=== PATIENT | male | born 1950 | race Caucasian/White ===

== ENCOUNTER 2020-01-09 07:02 | Emergency (ER) | payer OTHER, BC ==
[~2020-01-09] VITALS: Ht 167.6 cm; Wt 68.0 kg
== END 2020-01-09 08:09 | disposition home or self-care (01) ==
LOC: ED 07:02
DX: S83.92XA Sprain of unspecified site of left knee, initial encounter (principal); X58.XXXA Exposure to other specified factors, initial encounter
CPT/HCPCS: 73560; 99283-25

== ENCOUNTER 2023-12-04 07:21 | Day surgery (SDC) | payer BC, MEDICARE ==
[~2023-12-04] VITALS: Ht 162.6 cm; Wt 73.5 kg
[~2023-12-04 07:21] MED LIST: ECHINACEA400 MG PO; IBLOOD GLUCOSE TEST STRIP 1 EA TEST VI PRN; LACTATED RINGER'S 1,000 ML IV SCH; LIDOCAINE HCL 1% 5 ML SDV INJ ONE; MIDAZOLAM HCL 5 MG/5 ML VIAL IV PRN; MULTI VITAMIN1 EACH PO; OMEPRAZOLE20 MG PO; TRIAMCINOLONE A15 G1 TOP; VITAMIN C500 M5 PO; ZINC50 MG PO; fentaNYL citrate 100 MCG/2 ML VIAL IV PRN
[2023-12-04 07:33] VITALS: BP 135/81
[2023-12-04] MEDS ORDERED: fentaNYL citrate 100 MCG/2 ML VIAL ONE (08:34)
[2023-12-04] MEDS ORDERED: MIDAZOLAM HCL 5 MG/5 ML VIAL ONE (08:34)
--- NOTE | 2023-12-04 10:01 | NUR ---
12/04/23 Michelle1 Apoorva Sullivan PATIENT WAKES TO MY VOICE AND LIGHT TOUCH. HE REPOSITIONS HIMSELF ONTO HIS BACK AND DOES WELL WITH THAT. HE DENIES DESIRE FOR ANYTHING TO DRINK.
[2023-12-04 10:11] VITALS: BP 115/79
--- NOTE | 2023-12-04 15:55 | OR ---
[facility] [address], [place] [address] Signed DATE OF OPERATION: 12/04/2023 SURGEON: Talia Tilley MD PREOPERATIVE DIAGNOSES: 1. Personal history of colonic polyps in 2003 at age 53. 2. Moderate pandiverticulosis. PROCEDURE: Colonoscopy without biopsy. ESTIMATED BLOOD LOSS: None. INDICATIONS: Feliz is a 73-year-old gentleman, asked to see me for a followup colonoscopy. This would be his 3rd colonoscopy. He describes a colonoscopy in 2003 at the age of 53 while living in [place], [place]. He remembers being told he had precancerous polyps and should follow up in 5 years. He went back to the [facility] in 2011 at the age of 61. He had a negative colonoscopy. He believes he was told to follow up in 10 years. He said he has no lower GI complaints. There is no family history of colon cancer or polyps. He came to the office with his significant other. In the office, I gave him a pamphlet on colonoscopy. We reviewed the nature of the test. There is risk including, but not limited to gas bloating, crampy abdominal pain, bleeding, perforation requiring surgery, and missed diagnosis. We also reviewed the written instructions for a bowel prep line by line. He understands an adult person has to take him home afterwards. He had expressed understanding and wished to proceed. DESCRIPTION OF PROCEDURE: Feliz was taken into our endoscopy suite and placed in the left lateral decubitus position. He was given 7 mg of Versed and 125 mcg of fentanyl to cover the case. A digital rectal exam was performed. He had good sphincter tone. There were no external hemorrhoids. There were no masses. His prostate is indurated and enlarged. The right is more so than the left. More so at the top of the prostate and the bottom. The adult colonoscope was introduced and advanced under direct visualization of the camera. He took just a little extra medication in order to get around into the cecum itself. His prep was quite excellent. We could easily see the appendiceal orifice and the ileocecal valve. The scope then slowly withdrawn. He had moderate sized diverticula throughout the colon. They were relatively few in number. Once in the rectum, the scope had been retroflexed and there was no additional pathology above the anal canal. After this, the Electronically Signed By: TALIA TILLEY MD 12/04/23 1555 PATIENT NAME: FELIZ PERALES OPERATIVE REPORT DATE OF : 52 REPORT #: [id number] PHYSICIAN: TALIA TILLEY MD PCP: TESSA ZEE MD REPORT IS CONFIDENTIAL AND NOT TO BE RELEASED WITHOUT AUTHORIZATION [facility] [address], [place] [address] Signed gas was suctioned out and the colonoscope removed. Feliz tolerated the procedure quite well. RECOMMENDATIONS: Feliz is welcome to return in 5 years for repeat colonoscopy if indeed he had precancerous polyps in 2003 at the age of 53. If he pushes it out to 10 years, he would be 83 years of age. He would have to discuss that with his primary care provider at that time. Talia Tilley MD ALB/MODL /[id number] cc: Dr. Tessa Tilley MD Copies: TALIA TILLEY MD ~ Electronically Signed By: TALIA TILLEY MD 12/04/23 1555 PATIENT NAME: FELIZ PERALES OPERATIVE REPORT DATE OF : 52 REPORT #: [id number] PHYSICIAN: TALIA TILLEY MD PCP: TESSA ZEE MD REPORT IS CONFIDENTIAL AND NOT TO BE RELEASED WITHOUT AUTHORIZATION
== END 2023-12-04 10:18 | disposition home or self-care (01) ==
LOC: DS 07:21
PROVIDERS: ATTEND Colon & Rectal Surgery
PROC: 0DJD8ZZ Inspection of Lower Intestinal Tract, Via Natural or Artificial Opening Endoscopic (ICD-10-PCS; principal; 2023-12-04 09:00)
DX: K57.30 Diverticulosis of large intestine without perforation or abscess without bleeding (principal); N40.0 Benign prostatic hyperplasia without lower urinary tract symptoms; Z86.010 Personal history of colon polyps; Z79.899 Other long term (current) drug therapy
CPT/HCPCS: 99153; G0500; J2250; J3010

== ENCOUNTER 2024-01-21 05:50 | Day surgery (SDC) | payer BC, MEDICARE ==
[2024-01-14 11:28] VITALS: BP 103/71
[~2024-01-21] VITALS: Ht 167.6 cm; Wt 72.7 kg
[~2024-01-21 05:50] MED LIST changes: -IBLOOD GLUCOSE TEST STRIP 1 EA TEST VI PRN; -LIDOCAINE HCL 1% 5 ML SDV INJ ONE; -MIDAZOLAM HCL 5 MG/5 ML VIAL IV PRN; -fentaNYL citrate 100 MCG/2 ML VIAL IV PRN
[2024-01-21 06:04] VITALS: BP 139/80
[2024-01-21] MEDS ORDERED: LIDOCAINE HCL 2% 5 ML SDV ONE (06:58)
[2024-01-21] MEDS ORDERED: propofoL 200 MG/20 ML VIAL ONE (06:58)
[2024-01-21] MEDS ORDERED: MIDAZOLAM HCL 2 MG/2 ML VIAL ONE (06:58)
[2024-01-21] MEDS ORDERED: CEFAZOLIN SODIUM 2 GM/20 ML SYR IV SCH (07:00)
[2024-01-21] MEDS ORDERED: IBLOOD GLUCOSE TEST STRIP 1 EA TEST VI PRN ×2 (07:00→07:15)
[2024-01-21] MEDS ORDERED: LIDOCAINE HCL 1% 5 ML SDV INJ ONE (07:00)
[2024-01-21] MEDS ORDERED: fentaNYL citrate 50 MCG/ML SDV IV PRN (07:15)
[2024-01-21] MEDS ORDERED: MIDAZOLAM HCL 2 MG/2 ML VIAL IV PRN (07:15)
[2024-01-21] MEDS ORDERED: NALOXONE HCL 0.4 MG SYR IV PRN (07:15)
[2024-01-21] MEDS ORDERED: ondansetron HCL 4 MG/2 ML VIAL IV PRN ×2 (07:15→07:45)
[2024-01-21] MEDS ORDERED: TRAMADOL HCL 50 MG TAB PO PRN (07:45)
[2024-01-21] MEDS ORDERED: PHENAZOPYRIDINE HCL 95 MG TAB PO PRN (07:45)
--- NOTE | 2024-01-21 08:18 | NUR ---
01/21/24 0818 Arabella Shane 0810 PT TO PACU SLEEPING. PT MAINTAINS SATS ABOVE 95% ON ROOM AIR.
[2024-01-21 08:38] VITALS: BP 117/85
== END 2024-01-21 08:48 | disposition home or self-care (01) ==
LOC: OPS 05:50 → DS 05:50 → OPS 07:30 → DS 07:30 → OPS 08:48 → DS 11:00
PROVIDERS: ATTEND Urology
PROC: 0TJB8ZZ Inspection of Bladder, Via Natural or Artificial Opening Endoscopic (ICD-10-PCS; principal; 2024-01-21 07:30)
DX: N40.1 Benign prostatic hyperplasia with lower urinary tract symptoms (principal); N32.89 Other specified disorders of bladder; M35.3 Polymyalgia rheumatica; M51.369 Other intervertebral disc degeneration, lumbar region without mention of lumbar back pain or lower extremity pain
CPT/HCPCS: 00910; J0690; J2250; J2704; J7121

== ENCOUNTER 2024-05-20 08:30 | Day surgery (SDC) | payer BC, MEDICARE ==
[~2024-05-20] VITALS: Ht 167.6 cm; Wt 77.1 kg
[~2024-05-20 08:30] MED LIST changes: +ADVIL200 MG; +CEFAZOLIN SODIUM 2 GM/20 ML SYR IV SCH; +ELLZIA PAK1 EACH TP; +FLOMAX0.4 MG PO; +IBLOOD GLUCOSE TEST STRIP 1 EA TEST VI PRN; +LIDOCAINE HCL 1% 5 ML SDV INJ ONE; +MIDAZOLAM HCL 5 MG/5 ML VIAL IV PRN; +OXYBUTYNIN CHLOR5 M1 PO; +TURMERIC500 M2 PO; +TYLENOL EXTRA500 MG PO; +fentaNYL citrate 100 MCG/2 ML VIAL IV PRN
[2024-05-20 08:46] VITALS: BP 140/86
[2024-05-20] MEDS ORDERED: MIDAZOLAM HCL 5 MG/5 ML VIAL ONE (09:51)
[2024-05-20] MEDS ORDERED: fentaNYL citrate 100 MCG/2 ML VIAL ONE (09:51)
[2024-05-20] MEDS ORDERED: MIDAZOLAM HCL 2 MG/2 ML VIAL ONE (10:04)
--- NOTE | 2024-05-20 10:25 | NUR ---
05/20/24 Jean Claude5 Sandra De Souza 1019- PT PRESENTS TO PACU, SEMI RODRIGUEZ POSITION, REACTIVE TO STIMULUS. BREATHING EVEN AND NON LABORED, O2 AT 3L PER NC, INTERMITTENT SNORING. LR INFUSING TO RFA IV. ABD SOFT, NON DISTENDED. ALL MONITORS IN PLACE.
[2024-05-20 11:03] VITALS: BP 107/83
--- NOTE | 2024-05-20 16:06 | OR ---
[facility] [address], [place] [address] Signed DATE OF OPERATION: 05/20/2024 SURGEON: Talia Grubbs MD PREOPERATIVE DIAGNOSES: 1. Gastroesophageal reflux disease. 2. Heartburn. POSTOPERATIVE DIAGNOSES: 1. Hiatal hernia (38-35 cm). 2. 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 3. Mild diffuse gastritis. PROCEDURE: EGD with CLOtest and biopsies of the antrum and GE junction. ESTIMATED BLOOD LOSS: None. INDICATIONS: Feliz is a 73-year-old gentleman, asked to see me for an upper endoscopy. He has been having worsening acid reflux symptoms despite omeprazole and Tums. He has learned not to eat within a couple hours of going to bed or lying supine. I helped him with a colonoscopy in December 2023. He did very well with 7 mg of Versed and 125 mcg of fentanyl. He understands this is a very similar process. This does not require any laxatives. He said he had his right shoulder replaced on 01/29/2024. He confirmed today that orthopedic surgeon felt it was fine to proceed. We always gave preoperative Ancef for joint replacements. He did receive that today. In the office, I gave him a pamphlet on upper endoscopy. We had reviewed the nature of the test. There is risk including, but not limited to gas bloating, crampy abdominal pain, bleeding, perforation requiring surgery, and missed diagnosis. We also reviewed the need for the IV sedation. He said his will take him home. He had expressed understanding and wished to proceed. DESCRIPTION OF PROCEDURE: Feliz was taken into the endoscopy suite and placed in the supine semi-recumbent position. The posterior oropharynx was anesthetized with lidocaine spray. A bite block was utilized for the case. He was given a total of 6 mg of Versed and 100 mcg of fentanyl. The adult gastroscope was introduced and advanced under direct visualization of the camera without difficulty. His duodenum and pyloric channel were unremarkable. Electronically Signed By: TALIA GRUBBS MD 05/20/24 1606 PATIENT NAME: FELIZ PERALES OPERATIVE REPORT DATE OF : 52 REPORT #: [id number] PHYSICIAN: TALIA GRUBBS MD PCP: TESSA ZEE MD REPORT IS CONFIDENTIAL AND NOT TO BE RELEASED WITHOUT AUTHORIZATION [facility] [address], [place] [address] Signed We could actually see the ampulla of Vater quite well. His stomach showed very mild diffuse erythematous changes. We went ahead and took a biopsy of the antrum for CLOtest as well as pathologic review. Upon retroflexion of the scope, we could easily see his small to moderate sized hiatal hernia. It measured out roughly 38 back to 35 cm. It may have been just a little longer. Of course, the GE junction is at 35 cm. He had some mild disruption to his Z-line. There was no Ni's mucosa. We saw no gastric or esophageal varices. There was no stricture. His distal, middle and upper esophagus were unremarkable. After this, the gas was suctioned out and the gastroscope removed. Feliz tolerated the procedure quite well. RECOMMENDATIONS: I will see Feliz back in my office in 1 to 2 weeks to review his results. Talia Grubbs MD ALB/MODL /[id number] cc: MD Dr. Tessa Humphrey Copies: TALIA GRUBBS MD ~ Electronically Signed By: TALIA GRUBBS MD 05/20/24 1606 PATIENT NAME: FELIZ PERALES OPERATIVE REPORT DATE OF : 52 REPORT #: [id number] PHYSICIAN: TALIA GRUBBS MD PCP: TESSA ZEE MD REPORT IS CONFIDENTIAL AND NOT TO BE RELEASED WITHOUT AUTHORIZATION
--- NOTE | 2024-05-22 09:45 | PATH ---
[facility] [address] [facility] [place], [place] [address] Signed SPECIMEN(S): A ANTRUM/PYLORUS BIOPSY SPECIMEN(S): B GE JUNCTION BIOPSY SPECIMEN SOURCE: A. ANTRUM/PYLORUS BIOPSY B. GE JUNCTION BIOPSY CLINICAL HISTORY: GERD, acid reflux FINAL PATHOLOGIC DIAGNOSIS: A. Stomach, antrum/pylorus, biopsy: - Gastric antral mucosa with no significant pathologic changes - Negative for Helicobacter pylori with HE stains B. Gastroesophageal junction, biopsy: - Squamoglandular mucosa with reactive epithelial changes; negative for intestinal metaplasia BRP MICROSCOPIC EXAMINATION: Histologic sections of all submitted blocks are examined by light microscopy. These findings, together with the gross examination, support the pathologic diagnosis. GROSS DESCRIPTION: A. The specimen, labeled and designated "Mohamud, antrum biopsy," is received in formalin and consists of one pritchett soft tissue fragment, 0.3 cm. Entirely submitted in (A1). B. The specimen, labeled and designated "Mohamud, GE junction biopsy," is received in formalin and consists of one pritchett soft tissue fragment, 0.2 cm. Entirely submitted in (B1). JS (under the direct supervision of a pathologist) The Gross Description was prepared using a voice recognition system. The report was reviewed for accuracy; however, sound-alike word errors, addition and/or deletions may occur. If there is any question about this report, please contact Client Services. ADDITIONAL NOTES: Immunohistochemical and/or in situ hybridization studies if performed in this case included appropriate positive controls that reacted as expected. This test was developed and its performance PATIENT NAME: CECILY PERALES PATHOLOGY DATE OF : 52 REPORT #: [id number] PHYSICIAN: MCKENZIE NEW PCP: FREDRICK ZEE MD REPORT IS CONFIDENTIAL AND NOT TO BE RELEASED WITHOUT AUTHORIZATION [facility] [address] [place], [place] [address], [place] [address] Signed characteristics determined by [employer]. It has not been cleared or approved by the U.S. Food and Drug Administration. The FDA has determined that such clearance or approval is not necessary. This test is used for clinical purposes. It should not be regarded as investigational or for research. [facility] [facility] is certified under the Clinical Laboratory Improvement Amendments of 1988 (CLIA) as qualified to perform high complexity clinical laboratory testing. PERFORMING LABORATORY: Technical component was performed by [facility] [facility], [address] [place] [address] (CLIA# [id number]). Professional interpretation was performed by [facility], [address] [place] [address] (CLIA#: [id number]). Diagnostician: Jagdeep Urias MD Pathologist Electronically Signed 05/22/2024 Copies: ~ PATIENT NAME: CECILY PERALES PATHOLOGY DATE OF : 52 REPORT #: [id number] PHYSICIAN: MCKENZIE PATHOLOGY PCP: FREDRICK ZEE MD REPORT IS CONFIDENTIAL AND NOT TO BE RELEASED WITHOUT AUTHORIZATION
== END 2024-05-20 11:13 | disposition home or self-care (01) ==
LOC: DS 08:30
PROVIDERS: ATTEND Colon & Rectal Surgery
PROC: 0DB68ZX Excision of Stomach, Via Natural or Artificial Opening Endoscopic, Diagnostic (ICD-10-PCS; 2024-05-20)
PROC: 0DB48ZX Excision of Esophagogastric Junction, Via Natural or Artificial Opening Endoscopic, Diagnostic (ICD-10-PCS; principal; 2024-05-20 09:45)
DX: K29.70 Gastritis, unspecified, without bleeding (principal); K21.9 Gastro-esophageal reflux disease without esophagitis; K44.9 Diaphragmatic hernia without obstruction or gangrene; N32.81 Overactive bladder
CPT/HCPCS: 36415; 87077; G0500; J0690; J2250; J3010